=== PATIENT | male | born 1995 | race African-American/Black ===

== ENCOUNTER 2019-06-03 23:21 | Emergency (ER) | payer OTHER ==
[2019-06-03] MEDS ORDERED: IBUPROFEN 600 MG TABLET PO STA (23:33)
[2019-06-04] MEDS ORDERED: DEXAMETHASONE 10 MG/ML VIAL PO STA (00:24)
[2019-06-04] MEDS ORDERED: CHERRY SYRUP 10 ML UDC PO ONE (00:24)
[2019-06-04 00:37] VITALS: BP 120/78
--- NOTE | 2019-06-11 19:18 | ED Physician Documentation ---
PD HPI URI - Stated complaint Stated Complaint: FEVER - Chief complaint Chief Complaint: Fever - History obtained from History obtained from: Patient - History of Present Illness Timing - onset: How many weeks ago (1) Timing duration: Weeks (1) Timing details: Gradual onset, Still present Severity Comments: moderate sore throat and fever of 103 Associated symptoms: Fever Contributing factors: Other (pt is immunized, not immunocompromised, denies sick contacts) Improves by: Nothing Worsened by: Other (swallowing) Similar symptoms before: Diagnosis (patient recently seen in clinic earlier today and diagnosed with strep throat) Recently seen: Clinic - Treatment prior to arrival Treatment prior to arrival: ibuprofen - Additional information Additional information: Pt was seen in clinic today and treated for strep throat, he was placed on amoxicillin and he was told to come to the ED if he developed a fever Review of Systems Ten Systems: 10 systems reviewed and negative Constitutional: reports: Fever Ears: reports: Reviewed and negative Nose: reports: Reviewed and negative Throat: reports: Sore throat Cardiac: reports: Reviewed and negative Respiratory: reports: Reviewed and negative GI: reports: Reviewed and negative Skin: reports: Reviewed and negative Musculoskeletal: reports: Reviewed and negative Neurologic: reports: Headache Immunocompromised: reports: Reviewed and negative PD PAST MEDICAL HISTORY - Past Medical History Past Medical History: No - Allergies Allergies/Adverse Reactions: Allergies Allergy/AdvReac Type Severity Reaction Status Date / Time No Known Drug Allergies Allergy Verified 06/03/19 23:29 PD ED PE NORMAL - General General: Alert and oriented X 3, No acute distress, Well developed/nourished - HEENT HEENT: Atraumatic, Moist mucous membranes, Dentition benign - Neck Neck: Supple, no meningeal sign - Cardiac Cardiac: RRR, No murmur, No gallop, No rub - Respiratory Respiratory: No respiratory distress - Abdomen Abdomen: Soft, Non tender, Non distended - Male Male : Deferred - Rectal Rectal: Deferred - Derm Derm: Normal color, Warm and dry, No rash - Neuro Neuro: Alert and oriented X 3, Normal speech Eye Opening: Spontaneous Motor: Obeys Commands Verbal: Oriented GCS Score: 15 - Psych Psych: Normal mood, Normal affect PD ED PE EXPANDED - General General: Alert, No acute distress, Well developed/nourished - HEENT HEENT: Pharyngeal erythema, Swollen tonsils, Tonsillar exudate, Other (uvula midline, no trismus or drooling, normal voice, no hoarseness) - Eyes Eyes: Nl conjunctiva/sclera - Neck Neck: Supple w/out meningeal sx - Cardiac Cardiac: Regular Rate, Regular Rhythm - Respiratory Respiratory: Clear to ausultation jeffry - Abdomen Abdomen: Other Results - Vitals Vitals: Oxygen O2 Source Room air PD MEDICAL DECISION MAKING - ED course Complexity details: considered differential, d/w patient ED course: ddx - strep throat, viral pharyngitis, uri, flu, MECHANICAL SPECIALIST, uvulitis 23 y/o M with hx and exam as documented, has been treated with antibiotics and ibuprofen for pharyngitis with + strep. He was seen in clinic today. He has no signs of MECHANICAL SPECIALIST or airway compromise. his exam is consistent with strep pharyngitis. He is on the appropriate antibiotic. I gave the pt decadron as well for discomfort. He is stable for discharge with continued supportive care as an outpt. Discussed with pt return precautions in case of worsening pain, drooling, hoarseness or other new concerning symptoms. Departure - Departure Disposition: 01 Home, Self Care Clinical Impression: Strep throat Condition: Stable Instructions: Strep Throat Follow-Up: your, doctor [Other] Comments: Continue taking your antibiotics. Take ibuprofen and tylenol as needed for pain. Return to the ED if worsening symptoms including drooling, voice change, inability or swallow or open your mouth, shortness of breath. Discharge Date/Time: 06/04/19 00:36
== END 2019-06-04 00:36 | disposition home or self-care (01) ==
LOC: ED 23:21
DX: J02.0 Streptococcal pharyngitis (principal)
CPT/HCPCS: 99282; 99284; A9270